=== PATIENT | male | born 1945 | race Caucasian/White ===

== ENCOUNTER → 2020-12-18 | Outpatient (CLI) | payer MEDICARE, OTHER ==
[~2020-12-18] MED LIST: AMLO5; AMLO5 PO; ASPI81CH; ASPI81EC PO; ATOR40TA PO; CARV25 PO; CHOL10002; CYCL10 PO; DICL75ER PO; ISOMON20; LISHYD1012; LISHYD2012 PO; MELA3 PO; METF500 PO; MOMENI; MULVITA PO; Multiple Vitam1 EAC1 PO; OMEGA 3; OMEP20ER; SIMV40 PO; TAMS.4ER; TRAM50 PO; Veetids 500500 MG PO
[2020-12-19 14:04] LABS: C DIFFICILE DNA NEGATIVE (Negative)
== END | disposition home or self-care (01) ==
LOC: LAB 09:45 → LAB SHORT 09:45
PROVIDERS: Internal Medicine
DX: R19.7 Diarrhea, unspecified (principal)
CPT/HCPCS: 87015; 87045; 87046; 87205; 87493; 87899

== ENCOUNTER → 2020-12-19 | Outpatient (CLI) | payer MEDICARE, OTHER | END | disposition home or self-care (01) | LOC: LAB SHORT 12-18 06:25 → LAB 06:25 → LAB SHORT 06:25 | DX: R19.7 Diarrhea, unspecified (principal) | CPT/HCPCS: 87177; 87209 ==

== ENCOUNTER → 2021-03-01 | Outpatient (CLI) | payer MEDICARE, OTHER ==
[2021-03-01 08:56] LABS: BASOPHILS ABSOLUTE AUTO 0.05 K/mm3 (0.00-0.23); BASOPHILS PERCENT AUTO 1 % (0-2); EOSINOPHILS ABSOLUTE AUTO 0.11 K/mm3 (0.00-0.68); EOSINOPHILS PERCENT AUTO 1 % (0-6); Hemoglobin 11.7 g/dL (13.5-17.5); IMMATURE GRAN ABSOLUTE AUTO 0.29 K/mm3 (0.00-0.10); IMMATURE GRAN PERCENT AUTO 3 % (0-1); LYMPHOCYTES ABSOLUTE AUTO 1.51 K/mm3 (0.84-5.20); LYMPHOCYTES PERCENT AUTO 17 % (21-46); MONOCYTES PERCENT AUTO 11 % (4-13); Mean Corpuscular HGB 29.8 pg (26.0-34.0); Mean Corpuscular HGB Conc 34.4 g/dL (31.5-36.5); Mean Corpuscular Volume 87 fL (80-100); Mean Platelet Volume 9.8 fL (9.1-12.4); NEUTROPHILS ABSOLUTE AUTO 5.87 K/mm3 (1.96-9.15); NEUTROPHILS PERCENT AUTO 67 % (41-73); Platelet Count 332 K/mm3 (150-400); RDW Coefficient Variation 14.7 % (11.7-14.2); RDW Standard Deviation 47.2 fL (35.1-46.3); Red Blood Cell Count 3.93 M/mm3 (4.30-5.90); White Blood Cell Count 8.83 K/mm3 (4.00-11.30)
[2021-03-01 09:43] LABS: Bun/Creatinine Ratio 28.6 (12.0-20.0); Calcium, Blood 8.4 mg/dL (8.5-10.1); Creatinine, Blood 1.26 mg/dL (0.60-1.20); Potassium, Blood 3.4 mmol/L (3.5-5.5)
== END | disposition home or self-care (01) ==
LOC: LAB SHORT 08:52 → LAB 08:52
PROVIDERS: Physician Assistant Surgical
DX: R11.2 Nausea with vomiting, unspecified (principal)
CPT/HCPCS: 80048; 85025

== ENCOUNTER → 2022-10-22 | Outpatient (CLI) | payer MEDICARE, OTHER ==
[2022-10-22 12:41] LABS: BASOPHILS ABSOLUTE AUTO 0.05 K/mm3 (0.00-0.23); BASOPHILS PERCENT AUTO 0 % (0-2); EOSINOPHILS ABSOLUTE AUTO 0.57 K/mm3 (0.00-0.68); EOSINOPHILS PERCENT AUTO 5 % (0-6); Hematocrit 32.8 % (37.0-53.0); Hemoglobin 11.2 g/dL (13.5-17.5); IMMATURE GRAN ABSOLUTE AUTO 0.04 K/mm3 (0.00-0.10); IMMATURE GRAN PERCENT AUTO 0 % (0-1); LYMPHOCYTES ABSOLUTE AUTO 1.87 K/mm3 (0.84-5.20); LYMPHOCYTES PERCENT AUTO 17 % (21-46); MONOCYTES PERCENT AUTO 11 % (4-13); Mean Corpuscular HGB 31.3 pg (26.0-34.0); Mean Corpuscular HGB Conc 34.1 g/dL (31.5-36.5); Mean Corpuscular Volume 92 fL (80-100); Mean Platelet Volume 9.3 fL (9.1-12.4); NEUTROPHILS ABSOLUTE AUTO 7.45 K/mm3 (1.96-9.15); NEUTROPHILS PERCENT AUTO 67 % (41-73); Platelet Count 322 K/mm3 (150-400); RDW Coefficient Variation 13.5 % (11.7-14.2); RDW Standard Deviation 45.7 fL (35.1-46.3); Red Blood Cell Count 3.58 M/mm3 (4.30-5.90); White Blood Cell Count 11.18 K/mm3 (4.00-11.30)
[2022-10-22 12:49] LABS: Albumin/Globulin Ratio 0.8 (0.8-1.8); Bilirubin, Total 0.3 mg/dL (0.1-1.0); Bun/Creatinine Ratio 26.4 (12.0-20.0); Calcium, Blood 8.9 mg/dL (8.5-10.1); Creatinine, Blood 1.29 mg/dL (0.60-1.20); Globulin, Blood 3.9 g/dL (2.2-4.0); Potassium, Blood 4.8 mmol/L (3.5-5.5); Total Protein, Blood 6.9 g/dL (6.4-8.2)
== END | disposition home or self-care (01) ==
LOC: LAB SHORT 12:33
PROVIDERS: Emergency Medicine
DX: R07.89 Other chest pain (principal)
CPT/HCPCS: 80053; 83880; 84484; 85025

== ENCOUNTER 2024-08-27 13:12 | Inpatient (IN) | payer OTHER ==
[~2024-08-27] VITALS: Ht 157.5 cm; Wt 69.7 kg
[~2024-08-27 13:12] MED LIST changes: +ACET500 PO; +ALBU90OI INH; +AMLO10 PO; -AMLO5; -ASPI81CH; +ASPI81CH PO; +CEFD300 PO; -CHOL10002; +CLOP75 PO; +GABA300 PO; +HYDCHL25 PO; -ISOMON20; +ISOMON20 PO; +LISI20 PO; -OMEP20ER; +OMEP20ER PO; +THERA-D2000 UNIT PO; +TRAM50; -TRAM50 PO
[2024-08-27 13:21] LABS: Calcium, Ionized (POC) 1.08 mmol/L (1.10-1.46); Chloride (POC) 102 mmol/L (98-108); Glucose (ISTAT POC) 203 mg/dL (70-99); Hemoglobin (POC) 10.5 g/dL (13.5-17.5); Potassium (POC) 5.3 mmol/L (3.5-5.5); Sodium (POC) 129 mmol/L (135-148); Total CO2 (POC) 16 mmol/L (21-32)
[2024-08-27] MEDS ORDERED: NS 1,000 ML IV SCH ×2 (13:25→16:05)
[2024-08-27 13:30] LABS: Hematocrit 32.1 % (37.0-53.0); Hemoglobin 10.9 g/dL (13.5-17.5); Mean Corpuscular HGB 32.5 pg (26.0-34.0); Mean Corpuscular Volume 96 fL (80-100); Mean Platelet Volume 10.9 fL (9.1-12.4); Platelet Count 140 K/mm3 (150-400); RDW Coefficient Variation 13.2 % (11.7-14.2); RDW Standard Deviation 46.5 fL (35.1-46.3); Red Blood Cell Count 3.35 M/mm3 (4.30-5.90); White Blood Cell Count 11.35 K/mm3 (4.00-11.30)
[2024-08-27 13:54] LABS: Albumin, Blood 2.2 g/dL (3.4-5.0); Albumin/Globulin Ratio 0.6 (0.8-1.8); Bilirubin, Direct 0.2 mg/dL (0.0-0.3); Bilirubin, Indirect 0.2 mg/dL (0.1-0.7); Bilirubin, Total 0.4 mg/dL (0.1-1.0); Bun/Creatinine Ratio 19.2 (12.0-20.0); Calcium, Blood 7.9 mg/dL (8.5-10.1); Creatinine, Blood 4.37 mg/dL (0.60-1.20); Globulin, Blood 3.6 g/dL (2.2-4.0); Magnesium, Blood 1.8 mg/dL (1.6-2.4); Phosphorus, Blood 4.6 mg/dL (2.5-4.9); Potassium, Blood 5.3 mmol/L (3.5-5.5); Total Protein, Blood 5.8 g/dL (6.4-8.2)
[2024-08-27 13:55] LABS: CORONAVIRUS COVID-19 AG Negative (NEGATIVE); INFLUENZA A AG Negative (NEGATIVE); INFLUENZA B AG Negative (NEGATIVE)
[2024-08-27 14:05] LABS: BAND PERCENT MAN 34 % (0-8); BASOPHILS ABSOLUTE MAN 0.11 K/mm3 (0.00-0.23); BASOPHILS PERCENT MAN 1 % (0-2); EOSINOPHILS ABSOLUTE MAN 0.11 K/mm3 (0.00-0.68); EOSINOPHILS PERCENT MAN 1 % (0-6); LYMPHOCYTES ABSOLUTE MAN 0.34 K/mm3 (0.84-5.20); LYMPHOCYTES PERCENT MAN 3 % (21-46); MONOCYTES ABSOLUTE MAN 0.45 K/mm3 (0.16-1.47); MONOCYTES PERCENT MAN 4 % (4-13); NEUTROPHILS ABSOLUTE MAN 10.32 K/mm3 (1.96-9.15); SEG NEUTROPHILS PERCENT MAN 57 % (41-73); TOTAL CELLS COUNTED 100
[2024-08-27 14:36] LABS: International Normalized Ratio 1.03
[2024-08-27] MEDS ORDERED: FLU VACC TS2024-25(6MOS UP)/PF 45 MCG/0.5 ML SYRINGE IM SCH (16:00)
[2024-08-27] MEDS ORDERED: Atropine Sulfate 0.4 MG/ML 20ML VIAL IV ONE (16:40)
[2024-08-27 16:59] LABS: Hematocrit 33.8 % (37.0-53.0); Hemoglobin 11.3 g/dL (13.5-17.5); Mean Corpuscular HGB 32.4 pg (26.0-34.0); Mean Corpuscular HGB Conc 33.4 g/dL (31.5-36.5); Mean Corpuscular Volume 97 fL (80-100); Mean Platelet Volume 10.7 fL (9.1-12.4); Platelet Count 144 K/mm3 (150-400); RDW Coefficient Variation 13.2 % (11.7-14.2); RDW Standard Deviation 47.4 fL (35.1-46.3); Red Blood Cell Count 3.49 M/mm3 (4.30-5.90); White Blood Cell Count 11.94 K/mm3 (4.00-11.30)
[2024-08-27 17:16] LABS: Albumin, Blood 2.2 g/dL (3.4-5.0); Albumin/Globulin Ratio 0.6 (0.8-1.8); Bilirubin, Total 0.5 mg/dL (0.1-1.0); Bun/Creatinine Ratio 20.5 (12.0-20.0); Calcium, Blood 7.4 mg/dL (8.5-10.1); Creatinine, Blood 4.14 mg/dL (0.60-1.20); Globulin, Blood 3.6 g/dL (2.2-4.0); Potassium, Blood 4.8 mmol/L (3.5-5.5); Total Protein, Blood 5.8 g/dL (6.4-8.2)
[2024-08-27 17:58] LABS: BAND PERCENT MAN 70 % (0-8); BASOPHILS PERCENT MAN 0 % (0-2); EOSINOPHILS ABSOLUTE MAN 0.11 K/mm3 (0.00-0.68); EOSINOPHILS PERCENT MAN 1 % (0-6); LYMPHOCYTES ABSOLUTE MAN 0.71 K/mm3 (0.84-5.20); LYMPHOCYTES PERCENT MAN 6 % (21-46); METAMYELOCYTE ABSOLUTE MAN 0.23 K/mm3 (0.00-0.00); METAMYELOCYTE PERCENT MAN 2 % (0-0); MONOCYTES ABSOLUTE MAN 0.47 K/mm3 (0.16-1.47); MONOCYTES PERCENT MAN 4 % (4-13); NEUTROPHILS ABSOLUTE MAN 10.38 K/mm3 (1.96-9.15); SEG NEUTROPHILS PERCENT MAN 17 % (41-73); TOTAL CELLS COUNTED 100
[2024-08-27 19:49] VITALS: BP 90/46
[2024-08-27] MEDS ORDERED: Acetaminophen 500 MG Tab PO PRN (20:10)
[2024-08-27] MEDS ORDERED: Loperamide HCl 2 MG Cap PO PRN (20:20)
[2024-08-27] MEDS ORDERED: Albuterol HFA200 ACT/6.7 GM INH INH PRN (20:25)
[2024-08-27 20:51] LABS: Hematocrit 34.3 % (37.0-53.0); Hemoglobin 11.3 g/dL (13.5-17.5); Mean Corpuscular HGB 31.8 pg (26.0-34.0); Mean Corpuscular HGB Conc 32.9 g/dL (31.5-36.5); Mean Corpuscular Volume 97 fL (80-100); Mean Platelet Volume 10.7 fL (9.1-12.4); Platelet Count 147 K/mm3 (150-400); RDW Coefficient Variation 13.2 % (11.7-14.2); RDW Standard Deviation 47.2 fL (35.1-46.3); Red Blood Cell Count 3.55 M/mm3 (4.30-5.90); White Blood Cell Count 11.57 K/mm3 (4.00-11.30)
[2024-08-27 21:09] LABS: Magnesium, Blood 1.7 mg/dL (1.6-2.4)
[2024-08-27 21:14] LABS: Alanine Aminotransfer (ALT/SGP 102 U/L (12-78); Albumin, Blood 2.3 g/dL (3.4-5.0); Albumin/Globulin Ratio 0.6 (0.8-1.8); Alk Phos 84 U/L (50-136); Anion Gap 16 mmol/L (3-11); Aspartate Aminotrans (AST/SGOT 43 U/L (12-37); Bilirubin, Total 0.5 mg/dL (0.1-1.0); Blood Urea Nitrogen 80 mg/dL (8-24); Bun/Creatinine Ratio 18.6 (12.0-20.0); CO2, Blood 15 mmol/L (21-32); Calcium, Blood 7.6 mg/dL (8.5-10.1); Chloride, Blood 109 mmol/L (98-108); Globulin, Blood 3.6 g/dL (2.2-4.0); Glomerular Filtration Rate 13 (60-); Glucose, Blood 185 mg/dL (70-99); Phosphorus, Blood 5.6 mg/dL (2.5-4.9); Sodium, Blood 135 mmol/L (136-145); Total Protein, Blood 5.9 g/dL (6.4-8.2)
[2024-08-27 21:15] LABS: BAND PERCENT MAN 31 % (0-8); BASOPHILS PERCENT MAN 0 % (0-2); C-REACTIVE PROTEIN, EXT RANGE >19.000 mg/dL (0.000-0.300); EOSINOPHILS ABSOLUTE MAN 0.11 K/mm3 (0.00-0.68); EOSINOPHILS PERCENT MAN 1 % (0-6); LYMPHOCYTES ABSOLUTE MAN 0.69 K/mm3 (0.84-5.20); LYMPHOCYTES PERCENT MAN 6 % (21-46); METAMYELOCYTE ABSOLUTE MAN 0.11 K/mm3 (0.00-0.00); METAMYELOCYTE PERCENT MAN 1 % (0-0); MONOCYTES PERCENT MAN 0 % (4-13); NEUTROPHILS ABSOLUTE MAN 10.64 K/mm3 (1.96-9.15); SEG NEUTROPHILS PERCENT MAN 61 % (41-73); TOTAL CELLS COUNTED 100
[2024-08-27 22:26] LABS: Adenovirus F 40/41 Not Detected (NOT DETECT); Astrovirus Not Detected (NOT DETECT); Campylobacter Sp Not Detected (NOT DETECT); Cryptosporidium Not Detected (NOT DETECT); Cyclospora Cayetanensis Not Detected (NOT DETECT); E. Coli O157 Not Detected (NOT DETECT); Entamoeba Histolytica Not Detected (NOT DETECT); Enteroaggregative E. coli-EAEC Not Detected (NOT DETECT); Enteropathogenic E. coli-EPEC Not Detected (NOT DETECT); Enterotoxigenic E. coli-ETEC Not Detected (NOT DETECT); Giardia Lamblia Not Detected (NOT DETECT); Norovirus GI/GII Not Detected (NOT DETECT); Plesiomonas Shigelloides Not Detected (NOT DETECT); Rotavirus A Not Detected (NOT DETECT); Salmonella Sp Not Detected (NOT DETECT); Sapovirus Not Detected (NOT DETECT); Shiga Toxin-prod E. coli-STEC Not Detected (NOT DETECT); Shigella/Enteroin E. coli-EIEC Not Detected (NOT DETECT); Vibrio Cholerae Not Detected (NOT DETECT); Vibrio Sp Not Detected (NOT DETECT); Yersinia Enterocolitica Not Detected (NOT DETECT)
[2024-08-27 23:35] VITALS: BP 119/64
[2024-08-27 23:37] VITALS: BP 79/54
[2024-08-27 23:39] VITALS: BP 119/64
[2024-08-27 23:54] VITALS: BP 65/55
[2024-08-28] VITALS (76 sets, daily range): BP systolic 79–148; BP diastolic 39–89
--- NOTE | 2024-08-28 00:04 | NUR ---
UPDATE: PT APPEARED TO HAVE A SINUS PAUSE ON TELE. CAREER DEVELOPMENT ENGINEER WAS AT BEDSIDE WHEN THIS HAPPEN, STATING THE PATIENT HAD BECOME UNRESPONSIVE BRIEFLY. THIS WAS IMMEDIATELY AFTER THE PATIENT AMBULATED FROM THE BEDSIDE COMMODE BACK TO BED. EKG WAS DONE, SHOWING JUNCTIONAL RHYTHM @ 49 BPM. THIS IS A NEW RHYTHM CHANGE FOR PATIENT. PT'S BP DROPPED FROM 119/64 TO 65/55. THIS RN PHONED DR. HUSAIN TO DISCUSS PT CONDITION CHANGE. 500 ML BOLUS NS ORDERED. MD ARRIVED AT BEDSIDE.
[2024-08-28] MEDS ORDERED: NS 500 ML IV ONE (00:05)
[2024-08-28] MEDS ORDERED: Sodium Bicarb 8.4% Inj 100 MEQ in Sodium Chloride 0.45% 1,000 ML IV SCH ×2 (00:25→14:30)
--- NOTE | 2024-08-28 00:30 | NUR ---
UPDATE: PT TRANSFERRING TO ICU. STAT LABS, BICARB DRIP ORDERED PER DR. HUSAIN.
[2024-08-28 00:48] LABS: Base Excess Venous -14.2 mmol/L; Bicarbonate Venous 14.1 mmol/L (24.0-30.0); PCO2 Venous 28.8 mmHg (38-42); pH Blood Venous 7.26 (7.34-7.37)
[2024-08-28 00:51] LABS: Hematocrit 33.9 % (37.0-53.0); Hemoglobin 11.3 g/dL (13.5-17.5); Mean Corpuscular HGB 31.9 pg (26.0-34.0); Mean Corpuscular HGB Conc 33.3 g/dL (31.5-36.5); Mean Corpuscular Volume 96 fL (80-100); Mean Platelet Volume 10.6 fL (9.1-12.4); Platelet Count 129 K/mm3 (150-400); RDW Coefficient Variation 13.3 % (11.7-14.2); RDW Standard Deviation 47.5 fL (35.1-46.3); Red Blood Cell Count 3.54 M/mm3 (4.30-5.90); White Blood Cell Count 9.77 K/mm3 (4.00-11.30)
[2024-08-28 00:58] LABS: Source, Urine Foley catheter
[2024-08-28 01:04] LABS: Blood, Urine Neg (Neg); Glucose Qualitative, Urine Neg (Neg); Ketones, Urine Neg (Neg); Leukocyte Esterase, Urine Neg (Neg); Nitrite, Urine Neg (Neg); Protein, Urine 2+ (Neg); Urobilinogen, Urine NORM (Normal)
[2024-08-28 01:12] LABS: Albumin, Blood 2.2 g/dL (3.4-5.0); Albumin/Globulin Ratio 0.6 (0.8-1.8); BAND PERCENT MAN 31 % (0-8); BASOPHILS PERCENT MAN 0 % (0-2); Bilirubin, Total 0.5 mg/dL (0.1-1.0); Bun/Creatinine Ratio 18.1 (12.0-20.0); Calcium, Blood 7.7 mg/dL (8.5-10.1); Creatinine, Blood 4.64 mg/dL (0.60-1.20); EOSINOPHILS ABSOLUTE MAN 0.39 K/mm3 (0.00-0.68); EOSINOPHILS PERCENT MAN 4 % (0-6); Globulin, Blood 3.6 g/dL (2.2-4.0); LYMPHOCYTES ABSOLUTE MAN 0.19 K/mm3 (0.84-5.20); LYMPHOCYTES PERCENT MAN 2 % (21-46); METAMYELOCYTE ABSOLUTE MAN 0.09 K/mm3 (0.00-0.00); METAMYELOCYTE PERCENT MAN 1 % (0-0); MONOCYTES ABSOLUTE MAN 0.48 K/mm3 (0.16-1.47); MONOCYTES PERCENT MAN 5 % (4-13); MYELOCYTE ABSOLUTE MAN 0.09 K/mm3 (0.00-0.00); MYELOCYTE PERCENT MAN 1 % (0-0); Magnesium, Blood 1.6 mg/dL (1.6-2.4); NEUTROPHILS ABSOLUTE MAN 8.49 K/mm3 (1.96-9.15); Potassium, Blood 5.5 mmol/L (3.5-5.5); SEG NEUTROPHILS PERCENT MAN 56 % (41-73); TOTAL CELLS COUNTED 100; Total Protein, Blood 5.8 g/dL (6.4-8.2)
[2024-08-28 01:28] LABS: Appearance, Urine Hazy (Clear); Bilirubin, Urine 1+ (Neg); Color, Urine Yellow (P-Yellow)
[2024-08-28 01:29] LABS: Bacteria Few /hpf; Red Blood Cells, Urine 0-2 /hpf (0-2); Squamous Epithelial Cells Mod /hpf (Few); White Blood Cells, Urine 0-2 /hpf (0-5)
[2024-08-28 01:30] LABS: Amorphous Mod (0-Heavy); Granular Casts 0-2 /lpf (0); Mucus Light (0-Heavy)
[2024-08-28 05:23] LABS: Eosinophils-Raw #,Urine 0; White Blood Cells Urine 0-2 /hpf (0-5)
--- NOTE | 2024-08-28 05:23 | NUR ---
SHIFT SUMMARY: PT ARRIVED FROM PCU APPROXIMATELY 0130. HE IS ALERT AND COOPERATIVE WITH CARE BUT CONFUSED ABOUT LOCATION AND SITUATION. HE PRESENTED WITH HYPOTENSION NOT RESPONDING TO FLUID RESUCITATION AND A CHANGE TO A JUNCTIONAL RHYTHM FROM SINUS RHYTHM. PATIENT HAS REMAINED IN JUNCTIONAL RHYTHM WITH A RATE IN 40S-50S. PT IS ON A LEVOPHED GTT, MAP HAS NOT YET REACHED GOAL OF 65. PT CONTINUES TO HAVE DIARRHEA. HE HAS A MENENDEZ CATHETER IN PLACE. URINE OUTPUT IS LESS THAN ADEQUATE. PATIENT IS ON 5LPM OXYGEN VIA NC, HE EXHIBITS SOB WITH EXERTION. HE HAS A WOUND ON HIS ABDOMEN AND ONE ON HIS LEFT LEG THAT LOOK LIKE SKIN REACTIONS TO AN ELECTRODE AND A STAT LOCK RESPECTIVELY.
[2024-08-28 05:35] LABS: Hematocrit 31.8 % (37.0-53.0); Hemoglobin 10.8 g/dL (13.5-17.5)
[2024-08-28] MEDS ORDERED: Sodium Bicarb 8.4% 1 MEQ/ML 50 ML Vial IV ONE (05:45)
[2024-08-28] MEDS ORDERED: Bumetanide 0.25 MG/ML 10ML Vial IV ONE ×2 (05:45→08:30)
[2024-08-28] MEDS ORDERED: Albumin (Human) 12.5gm/250ml 250 ML IV ONE (05:45)
[2024-08-28 06:00] LABS: Albumin, Blood 2.2 g/dL (3.4-5.0); Anion Gap 17 mmol/L (3-11); Blood Urea Nitrogen 90 mg/dL (8-24); Bun/Creatinine Ratio 18.5 (12.0-20.0); CO2, Blood 14 mmol/L (21-32); Calcium, Blood 7.9 mg/dL (8.5-10.1); Chloride, Blood 110 mmol/L (98-108); Creatinine, Blood 4.86 mg/dL (0.60-1.20); Glomerular Filtration Rate 11 (60-); Glucose, Blood 150 mg/dL (70-99); Magnesium, Blood 1.8 mg/dL (1.6-2.4); Phosphorus, Blood 5.6 mg/dL (2.5-4.9); Potassium, Blood 5.5 mmol/L (3.5-5.5); Sodium, Blood 135 mmol/L (136-145)
[2024-08-28] MEDS ORDERED: CefTRIAXone Sodium 2,000 MG in NS 100 ML IV SCH (07:30)
[2024-08-28] MEDS ORDERED: Vancomycin HCL 1,750 MG in NS 500 ML IV SCH (08:30)
[2024-08-28] MEDS ORDERED: Enoxaparin 30 MG/0.3 ML SYR SC SCH (09:00)
[2024-08-28] MEDS ORDERED: Aspirin 81 MG Chew PO SCH (09:00)
[2024-08-28] MEDS ORDERED: Atorvastatin 40 MG Tab PO SCH (09:00)
[2024-08-28] MEDS ORDERED: NS 250 ML IV PRN (09:05)
--- NOTE | 2024-08-28 11:11 | NUR ---
AM NOTE.... ASSUMED CARE OF PT AT 0700, PT IS A&Ox4 AT THE TIME OF THIS ASSESSMENT. HE IS IN SR/SA IN THE 80'S LEVOPHED IS RUNNING AT 10MCG/HR TO KEEP MAPS>65. PT HAS 1+ EDEMA TO HIS BLE. PT IS ON 4L NC WITH O2 SATS>90% L/S CLEAR AND DIM IN THE BASES UPPER AIRWAY WHEEZING/STRIDOR NOTED. PT BECOMES VERY DYSPNEIC WITH ACTIVITY. BT PRESENT AND HYPERACTIVE, PT IS HAVING FREQUENT LOOSE STOOLS. MENENDEZ IS PATENT AND DRAINING TO GRAVITY. A PICC LINE WAS PLACED PER ORDERS THIS AM.
[2024-08-28 13:09] LABS: Albumin, Blood 2.3 g/dL (3.4-5.0); Anion Gap 16 mmol/L (3-11); Blood Urea Nitrogen 82 mg/dL (8-24); Bun/Creatinine Ratio 19.7 (12.0-20.0); CO2, Blood 17 mmol/L (21-32); Calcium, Blood 7.6 mg/dL (8.5-10.1); Chloride, Blood 107 mmol/L (98-108); Creatinine, Blood 4.16 mg/dL (0.60-1.20); Glomerular Filtration Rate 14 (60-); Glucose, Blood 136 mg/dL (70-99); Phosphorus, Blood 4.5 mg/dL (2.5-4.9); Sodium, Blood 136 mmol/L (136-145)
--- NOTE | 2024-08-28 13:14 | NUR ---
"Spiritual care | spousal support. Pt. was being attended to to by the nursing staff when I greeted Pts. spouse outside of the room. Facilitated a life review and considered matters of gabriela and belief. Spouse is pleasant and invited this long distance billing operator to return at another time later today."
--- NOTE | 2024-08-28 14:00 | NUR ---
Pt. is resting but responds when I enter the room. Pt. is pleasant. A life review and a measure of rapport is quickly established. Considered matters of his life and recent second marriage. Listen with interest and a calming presence. Pt. showed this dental laboratory manager photos of his restored 55 [address]. Prayed for the Pt. Pt. verbalized gratitude fo te spiritual care visit.
[2024-08-28] MEDS ORDERED: Acetaminophen 500 MG Tab PO PRN (15:05)
[2024-08-28] MEDS ORDERED: Acetaminophen 500 MG Tab PO ONE (16:00)
--- NOTE | 2024-08-28 18:31 | NUR ---
SHIFT SUMMARY.... PT HAS BEEN A&Ox4 T/O THIS SHIFT UNTIL APROX 1500 WHEN HE STARTED TO BECOME CONFUSED, HE WAS MUMBLING UNABLE TO FIND HIS WORDS ALMOST LIKE "WORD SALAD." THE PT'S TEMP WAS INCREASING T/O THIS SHIFT WITH A TMAX OF 103. PT WAS GIVEN TYLENOL AND ICE PACKS WITH FANS. THE PT WAS IN SR UNTIL AROUND THIS TIME WELL, HE HAD AN EPISODE OF ACCL JUNCTIONAL, SOME 2 SECOND PAUSES AND THEN CONVERTED TO AFIB W/RVR IN THE 130'S EKG WAS OBTAINED. PT'S WORK OF BREATHING INREASED AND O2 SATS DROPPED DOWN TO THE LOW 80'S, HIS O2 WAS TITRATED UP FROM 4L NC TO 11L NC HI FLOW. HOSPITALIST WAS NOTIFIED AND AN ORDER FOR NUTRITIONAL ASSISTANT CONSULT WAS PLACED AND DR. JONES WAS CALLED. A RECTAL TUBE WAS PLACED D/T THE PT HAVING INCREASED LOOSE STOOLS. PT'S MENENDEZ IS PATENT AND DRAINING TO GRAVITY. THE PT'S TEMP IMPROVED AT 1800 TO 99.6, AFTER THIS THE PT'S MENTAL STATUS IMPROVED, HIS WORK OF BREATHING IMPROVED AND HIS O2 WAS TITRATED DOWN TO 7L NC. WILL REPORT TO ONCOMING RN.
[2024-08-28 19:04] LABS: Hematocrit 32.1 % (37.0-53.0); Mean Corpuscular HGB Conc 34.3 g/dL (31.5-36.5); Mean Corpuscular Volume 93 fL (80-100); Platelet Count 138 K/mm3 (150-400); RDW Coefficient Variation 13.2 % (11.7-14.2); RDW Standard Deviation 45.1 fL (35.1-46.3); Red Blood Cell Count 3.44 M/mm3 (4.30-5.90); White Blood Cell Count 9.58 K/mm3 (4.00-11.30)
[2024-08-28 19:33] LABS: BAND PERCENT MAN 35 % (0-8); BASOPHILS PERCENT MAN 0 % (0-2); EOSINOPHILS PERCENT MAN 0 % (0-6); LYMPHOCYTES ABSOLUTE MAN 0.76 K/mm3 (0.84-5.20); LYMPHOCYTES PERCENT MAN 8 % (21-46); METAMYELOCYTE ABSOLUTE MAN 0.19 K/mm3 (0.00-0.00); METAMYELOCYTE PERCENT MAN 2 % (0-0); MONOCYTES ABSOLUTE MAN 0.38 K/mm3 (0.16-1.47); MONOCYTES PERCENT MAN 4 % (4-13); NEUTROPHILS ABSOLUTE MAN 8.23 K/mm3 (1.96-9.15); SEG NEUTROPHILS PERCENT MAN 51 % (41-73); TOTAL CELLS COUNTED 100
[2024-08-28 19:39] LABS: Bun/Creatinine Ratio 23.1 (12.0-20.0); Calcium, Blood 7.7 mg/dL (8.5-10.1); Creatinine, Blood 3.72 mg/dL (0.60-1.20); Magnesium, Blood 1.4 mg/dL (1.6-2.4); Phosphorus, Blood 4.3 mg/dL (2.5-4.9); Potassium, Blood 3.7 mmol/L (3.5-5.5)
--- NOTE | 2024-08-28 20:31 | NUR ---
I INITIALLY CALLED AND SPOKE TO TERRA MELGAR WITH [employer]. HE REQUESTED I CALL AND NOTIFY ROBERT SINCE ROBERT ORDERED THE TROPONIN. ECG PERFORMED AT [address] SEGMENT CHANGES. ROBERT ADVISED TO DO PRN ECGS AND TO NOTIFY HIM IF THE PATIENT HAS ANY CHANGES IN PRESENTATION OR CONDITION.
[2024-08-28] MEDS ORDERED: Magnesium Sulf 2 GM/Water 50ML 50 ML IV ONE (21:50)
[2024-08-28] MEDS ORDERED: Calcium Chloride 10% 2,000 MG in NS 100 ML IV ONE (21:50)
[2024-08-29] VITALS (43 sets, daily range): BP systolic 110–168; BP diastolic 53–94
[2024-08-29 01:22] LABS: Bun/Creatinine Ratio 23.4 (12.0-20.0); Calcium, Blood 9.6 mg/dL (8.5-10.1); Creatinine, Blood 3.51 mg/dL (0.60-1.20); Magnesium, Blood 2.6 mg/dL (1.6-2.4); Potassium, Blood 3.5 mmol/L (3.5-5.5)
[2024-08-29] MEDS ORDERED: Potassium Chl 10MEQ/Water100ML 100 ML IV ONE (02:30)
--- NOTE | 2024-08-29 02:50 | NUR ---
SPOKE WITH RODRIGUE APPROXIMATELY 0000 ABOUT PATIENT'S INCREASING FREQUENCY AND DURATION OF PAUSES. PT REMAINS ASYMPTOMATIC DURING. RODRIGUE ORDERED LABS, ECHO AND CONSULT AND WILL REVIEW LABS.
[2024-08-29] MEDS ORDERED: Sodium Bicarb 8.4% Inj 100 MEQ in Sodium Chloride 0.45% 1,000 ML IV SCH (04:25)
[2024-08-29 04:28] LABS: Vancomycin, Random 18.5 ug/mL
--- NOTE | 2024-08-29 05:40 | NUR ---
SHIFT SUMMARY: PT HAS REMAINED A&OX4 THROUGHOUT SHIFT. HE IS ON 7LPM O2 NC, SOB HAS IMPROVED. LUNGS ARE CLEAR. PT WAS IN AFIB W/ RVR WITH PAUSES AND PVCS. HE REMAINED ASYMPTOMATIC DURING THESE TIMES. PT HAS MAINTAINED A MAP >65. HE IS STILL ON SODIUM BICARB GTT NOW AT 50ML/HR. LEVOPHED IS STILL OFF. MENENDEZ CATHETER AND RECTAL TUBE IN PLACE AND PATENT. PT STILL EXPERIENCING LIQUID BMS.
[2024-08-29] MEDS ORDERED: Bumetanide 0.25 MG/ML 10ML Vial IV ONE (07:00)
--- NOTE | 2024-08-29 08:25 | NUR ---
AM NOTE... ASSUMED CARE OF PT AT 0700, PT IS A&Ox4. HE IS IN AFIB IN THE 100'S TO 130'S BP IS STABLE WITH MAPS>65. PT HAS 1+ EDEMA TO HIS BLE. HE WAS ON 7L NC WITH O2 SATS>90% L/S WHEEZES HEARD ON THE RIGHT SIDE, CLEAR IN THE UPPER LEFT LOBE DIM IN THE LOWER LOBES. BT PRESENT AND HYPERACTIVE ABD HAS MODERATE DISTENTION AND IS SLIGHTLY FIRM TO PALPATION. RECTAL TUBE IS PATIENT AND DRAINING LIQUID BROWN STOOLS TO GRAVITY. MENENDEZ IS PATENT AND DRAINING TO GRAVITY. PT'S TEMP THIS AM WAS 100.6.
[2024-08-29] MEDS ORDERED: Vancomycin HCL 1,000 MG in NS 250 ML IV SCH (09:00)
[2024-08-29] MEDS ORDERED: Carvedilol 25 MG Tab PO SCH (11:00)
--- NOTE | 2024-08-29 12:00 | NUR ---
PT CONVERSION.... PT CONVERTED FROM AFIB TO SR AFTER A 2.5 SECOND PAUSE. AT 1045 THE FURNACE TENDER ASSESSED THE PT. OTHER VS STABLE.
[2024-08-29] MEDS ORDERED: Atropine Sulfate 0.1 MG/ML 10ML SYR IV PRN (15:40)
[2024-08-29 16:27] LABS: Free Thyroxine 1.14 ng/dL (0.70-1.60)
[2024-08-29 16:28] LABS: Thyroid Stimulating Hormone 0.307 uIU/mL (0.360-4.800)
[2024-08-29 16:31] LABS: C-Reactive Protein, High Sens. >190.000 mg/dL (0.000-3.000)
--- NOTE | 2024-08-29 17:57 | NUR ---
SHIFT SUMMARY... NO ACUTE NEGATIVE CHANGES NOTED THIS SHIFT. PT'S O2 HAS DECREASED FROM 7L NC TO 3L NC WITH O2 SATS>92%. PT HAD A BED BATH AND LINEN CHANGE, THE PT'S RECTAL TUBE IS DRAINING WELL TO GRAVITY. PT'S MENENDEZ IS PATENT AND DRAINING TO GRAVITY, PT'S TMAX WAS 100.6. PT HAS BEEN IN SR SINCE 944, NO PAUSES NOTED SINCE HE CONVERTED THIS AM. ZOLL AT THE BEDSIDE. CALL LIGHT IN REACH, WILL REPORT TO ONCOMING RN.
--- NOTE | 2024-08-29 20:17 | NUR ---
ASSUMPTION OF CARE/ASSESSMENT: ASSUMED CARE OF PT AT 1900; REPORT RECIEVED FROM LEIDY WITT. PT REMAINS IN BED, A&O X 4, PLEASANT AND COOPERATIVE WITH CARE. PT CONTINUES ON NC @ 3LPM, REPORTS MILD SOB, WHEEZES NOTED IN DIPTI, CLEAR THROUGHOUT OTHER LOBES, AND SPO2 92<; RT BY TO ADMINISTER PRN ALBUTEROL WITH GOOD EFFECT. PT CONTINUES WITH SR ON MONITOR WITH OCCASIONAL PVC'S, HR 90'S AND SBP 120'S. PT DENIES CHEST PAIN OR PRESSURE AT THIS TIME. ABD OBSES, ROUND AND FIRM; PAIN UPON PALPATION ON LEFT SIDE; PT STATES THAT HE HAD A HERNIA REPAIR IN THE PAST AND EVEN SINCE THEN AREA HAS BEEN TENDER. WILL CONTINUE TO MONITRO ABD PAIN THROUGHOUT THE SHIFT. PT DOLAN, ASSISTS WITH TURNS AND ABLE TO COMMUNICATE NEEDS. MENENDEZ PATENT AND DRAINING TO GRAVITY; RECTAL TUBE PATENT AND DRAINING TO GRAVITY. PIV TO RFA PULLED AT START OF SHIFT. PICC TO HERMINIO REMAINS PATENT AND SALINE LOCKED AT THIS TIME. BED LOWERED, CALL LIGHT IN REACH.
[2024-08-30] VITALS (14 sets, daily range): BP systolic 123–169; BP diastolic 57–95
[2024-08-30 04:51] LABS: BASOPHILS ABSOLUTE AUTO 0.04 K/mm3 (0.00-0.23); BASOPHILS PERCENT AUTO 1 % (0-2); EOSINOPHILS ABSOLUTE AUTO 0.11 K/mm3 (0.00-0.68); EOSINOPHILS PERCENT AUTO 1 % (0-6); Hematocrit 33.4 % (37.0-53.0); Hemoglobin 11.7 g/dL (13.5-17.5); IMMATURE GRAN ABSOLUTE AUTO 0.17 K/mm3 (0.00-0.10); IMMATURE GRAN PERCENT AUTO 2 % (0-1); LYMPHOCYTES ABSOLUTE AUTO 0.84 K/mm3 (0.84-5.20); LYMPHOCYTES PERCENT AUTO 11 % (21-46); MONOCYTES ABSOLUTE AUTO 0.83 K/mm3 (0.16-1.47); MONOCYTES PERCENT AUTO 10 % (4-13); Mean Corpuscular HGB 31.9 pg (26.0-34.0); Mean Corpuscular Volume 91 fL (80-100); Mean Platelet Volume 10.9 fL (9.1-12.4); NEUTROPHILS ABSOLUTE AUTO 6.02 K/mm3 (1.96-9.15); NEUTROPHILS PERCENT AUTO 75 % (41-73); Platelet Count 130 K/mm3 (150-400); RDW Standard Deviation 44.1 fL (35.1-46.3); Red Blood Cell Count 3.67 M/mm3 (4.30-5.90); White Blood Cell Count 8.01 K/mm3 (4.00-11.30)
[2024-08-30 05:08] LABS: Anion Gap 12 mmol/L (3-11); Blood Urea Nitrogen 63 mg/dL (8-24); CO2, Blood 25 mmol/L (21-32); Calcium, Blood 8.6 mg/dL (8.5-10.1); Chloride, Blood 103 mmol/L (98-108); Creatinine, Blood 2.17 mg/dL (0.60-1.20); Glomerular Filtration Rate 30 (60-); Glucose, Blood 156 mg/dL (70-99); Magnesium, Blood 1.8 mg/dL (1.6-2.4); Phosphorus, Blood 3.4 mg/dL (2.5-4.9); Potassium, Blood 2.7 mmol/L (3.5-5.5); Sodium, Blood 137 mmol/L (136-145); Vancomycin, Random 17.2 ug/mL
[2024-08-30] MEDS ORDERED: Potassium Chloride 20 MEQ TabCR PO ONE (05:35)
[2024-08-30] MEDS ORDERED: Potassium Chl 20MEQ/Water100ML 100 ML IV ONE (05:35)
--- NOTE | 2024-08-30 05:35 | NUR ---
SHIFT SUMMARY: NO ACUTE CHANGES OVERNIGHT, VSS THROUGHOUT THE SHIFT. PT REMAINS OFF LEVO THROUGHOUT THE NIGHT. PT ABLE TO SLEEP FOR MAJORITY OF THE NIGHT. RECTAL TUBE BAD REPLACED; 300 ML OUTPUT. GOOD URINE OUTPUT; 1300 MLS OUTPUT. POTASSIUM AT 2.7 THIS MORNING; UPDATED AND NEW ORDERS RECIEVED. BED LOWERED, CALL LIGHT IN REACH.
--- NOTE | 2024-08-30 07:53 | NUR ---
AM NOTE... ASSUMED CARE OF PT AT 0700, PT IS A&Ox4. PT WAS ON 3L NC WHICH WAS STOPPED DURING THIS ASSESSMENT, PT'S O2 SATS STAYED >90%. L/S CLEAR T/O DIM IN THE BASES. PT DENIES CHEST PAIN. BT PRESENT AND HYPERACTIVE, ABD HAS MODERATE DISTENTION AND IS TENDER TO PALPATION. RECTAL TUBE IS PATENT AND DRAINING TO GRAVITY. MENENDEZ IS PATENT AND DRAINING TO GRAVITY. PLANS TO GET UP TO THE RECLINER CHAIR TODAY.
[2024-08-30] MEDS ORDERED: Vancomycin HCL 1,000 MG in NS 250 ML IV SCH (09:00)
[2024-08-30] MEDS ORDERED: MethylPREDNISolone Sod Succ 40 MG VIAL IV ONE (11:00)
[2024-08-30] MEDS ORDERED: Potassium Chloride 10 Meq Tablet SA PO ONE (13:55)
[2024-08-30] MEDS ORDERED: Insulin Human Lispro 100 Units/ML 3ML Syringe SC SCH (17:00)
--- NOTE | 2024-08-30 17:40 | NUR ---
SHIFT SUMMARY.... NO ACUTE NEGATIVE CHANGES NOTED THIS SHIFT. PT'S VS HAVE BEEN STABLE. PT HAS BEEN ON RA T/O THIS SHIFT UNLESS HE IS SLEEPING THEN HE NEEDS 2-3L TO KEEP O2 SATS>90%. PT WAS UP IN THE RECLINER CHAIR FOR SEVERAL HOURS THIS SHIFT WITH 1P ASSIST. RECTAL TUBE AND MENENDEZ ARE PATENT AND DRAINING TO GRAVITY. PT WAS CHANGED TO PCU STATUS THIS AFTERNOON. CALL LIGHT IN REACH.
[2024-08-31] VITALS (23 sets, daily range): BP systolic 127–186; BP diastolic 62–95
[2024-08-31 05:05] LABS: Hematocrit 34.2 % (37.0-53.0)
[2024-08-31 05:25] LABS: Anion Gap 11 mmol/L (3-11); Blood Urea Nitrogen 51 mg/dL (8-24); Bun/Creatinine Ratio 33.1 (12.0-20.0); CO2, Blood 27 mmol/L (21-32); Calcium, Blood 8.4 mg/dL (8.5-10.1); Chloride, Blood 108 mmol/L (98-108); Creatinine, Blood 1.54 mg/dL (0.60-1.20); Glomerular Filtration Rate 45 (60-); Glucose, Blood 178 mg/dL (70-99); Magnesium, Blood 1.9 mg/dL (1.6-2.4); Phosphorus, Blood 2.9 mg/dL (2.5-4.9); Potassium, Blood 3.6 mmol/L (3.5-5.5); Sodium, Blood 142 mmol/L (136-145)
--- NOTE | 2024-08-31 06:49 | NUR ---
END OF SHIFT SUMMARY NO ACUTE EVENTS OVER NIGHT. HE WAS ABLE TO SLEEP FOR ONLY A FEW HOURS. HE IS A/O X4 AND ABLE TO MAKE HIS NEEDS KNOWN. SPO2 >92% ON RA WHILE AWAKE AND ON 2L NC WHILE SLEEPING. AFEBRILE. NSR NOTED WITH RATE 70-90'S. SBP 140-160'S. RECTAL TUBE IN PLACE WITH SMALL AMOUNT OF LIQUID BROWN OUTPUT. MENENDEZ IN PLACE AND DRAINING TO GRAVITY; TOLERATED FLUID RESTRICTION. REDNESS TO COCCYX NOTED AND IMPROVING T/O SHIFT; BARRIER CREAM APPLIED. PICC TO RUE PATENT WITH DRESSING C/D/I; SALINE LOCKED. WILL REPORT TO AM RN WHEN AVAILABLE.
[2024-08-31] MEDS ORDERED: Vancomycin HCL 1,000 MG in NS 250 ML IV SCH (08:00)
[2024-08-31] MEDS ORDERED: MethylPREDNISolone Sod Succ 40 MG VIAL IV SCH (09:00)
[2024-08-31] MEDS ORDERED: Lisinopril 20 MG Tab PO SCH ×2 (09:00→21:00)
[2024-08-31] MEDS ORDERED: Enoxaparin 40 MG/0.4 ML SYR SC SCH (09:00)
--- NOTE | 2024-08-31 10:22 | NUR ---
THIS RN ASSUMED CARE OF PT AT 0700, PT IS ALERT AND ORIENTED X4, VERY PLEASANT PT, CLINICALLY AND VITALS ALL LOOK GREAT THIS AM. WAS BEDSIDE THIS AM AND NOTED PT WAS LOOKING A LOT BETTER. SAID TO GO AHEAD AND PULL MENENDEZ, RECTAL TUBE WILL WAIT DUE TO PT STILL HAVEING COLLITIS IN STOOL, PT ON A FLUID RESTRICTION, AWARE AND WOULD LOOK INTO IT TO SEE IF WE CAN INCREASE FLUIDS OR GET RID OF IT ALL TOGETHER. PT BLOOD PRESSURE ELEVATED THIS AM 180 SBPs, ORDERED PT LISINOPRIL 20MG DAILY. PT HAS A PICC LINE THAT IS CLEAN/DRY AND INTACT, SLIGHT BRUSIING, PT DENIES ANY PAIN. NO NEW INTERVENTIONS AT THIS TIME. PLAN OF CARE CONTINUED.
[2024-08-31] MEDS ORDERED: HydrALAZINE HCl 20 MG / ML 1ML Vial IV PRN (11:30)
--- NOTE | 2024-08-31 17:34 | NUR ---
PT SUMMARY PT IS ALERT AND ORIENTED X4, PT HAS BEEN VISITING WITH FAMILY MOST OF THE DAY. AT AROUND 1300 MENENDEZ CATHETER WAS REMOVED AND RECTAL TUBE WAS REMOVED. PT WAS ABLE TO VOID AND URINATE IN THE BATHROOM. PT WAS ABLE TO GET UP AND SIT IN CHAIR X1 ASSIST. PT IS PRETTY WEAK BUT MOVES APPROPRIATLEY WITH ASSISTANCE. PT BLOOD PRESSURE HAS BEEN ON HIGHER END TODAY. PRN HYDRALAZINE FOR SBP >160 AND RESTARTED HOME LISINOPRIL PER DR. WATERS. NO OTHER INTERVENTIONS OR ACUTE EVENTS HAPPENED ON 08/31/24. PLAN OF CARE CONTINUED.
--- NOTE | 2024-08-31 22:42 | NUR ---
TRANSFERED CARE @9571 TRANSFERED PATIENT TO ROOM 312 TO SHERIE WITT, PATIENT BELONGINGS WITH HIM.
--- NOTE | 2024-09-01 04:22 | NUR ---
SHIFT SUMMARY: Pt is admitted for JOSE and is a full code. Is alert and able to make needs known. ADLs have been SBA. denies pain or discomfort when asked. Telly reports sinus in the 90s. PICC to right upper arm is patent with dressing that is CDI.
[2024-09-01 05:01] LABS: Hematocrit 34.5 % (37.0-53.0); Hemoglobin 11.9 g/dL (13.5-17.5)
[2024-09-01 05:13] LABS: Albumin, Blood 2.2 g/dL (3.4-5.0); Anion Gap 9 mmol/L (3-11); Blood Urea Nitrogen 42 mg/dL (8-24); Bun/Creatinine Ratio 34.4 (12.0-20.0); CO2, Blood 28 mmol/L (21-32); Calcium, Blood 8.4 mg/dL (8.5-10.1); Chloride, Blood 109 mmol/L (98-108); Creatinine, Blood 1.22 mg/dL (0.60-1.20); Glomerular Filtration Rate 60 (60-); Glucose, Blood 174 mg/dL (70-99); Magnesium, Blood 1.8 mg/dL (1.6-2.4); Phosphorus, Blood 1.8 mg/dL (2.5-4.9); Potassium, Blood 3.7 mmol/L (3.5-5.5); Sodium, Blood 142 mmol/L (136-145)
[2024-09-01] MEDS ORDERED: Sodium Phosphate 20 MM in Dextrose 5% 500 ML IV STA (07:20)
[2024-09-01 07:36] VITALS: BP 168/74
[2024-09-01] MEDS ORDERED: Potassium Chloride 10 Meq Tablet SA PO SCH (09:00)
[2024-09-01] MEDS ORDERED: Furosemide 20 MG Tab PO SCH (09:00)
[2024-09-01] MEDS ORDERED: CARV3.125 PO (12:35)
[2024-09-01] MEDS ORDERED: FLOMAX0.4 MG PO (12:38)
[2024-09-01] MEDS ORDERED: BACTRIM DS TAB1 EAC6 PO (12:39)
[2024-09-01] MEDS ORDERED: FURO20 PO (12:39)
[2024-09-01] MEDS ORDERED: Prednisone10 MG PO (12:43)
[2024-09-01] MEDS ORDERED: POTA10T PO (12:43)
--- NOTE | 2024-09-01 15:00 | NUR ---
PT DISCHARGE REVIEWED WITH PT AND SPOUSE, THEY VERBALIZED UNDERSTANDING MEDS AND INST. PICC PULLED BY CEMENTER MACHINE APPLICATOR ALISHA, TELE REMOVED. PT WHEELED TO DOOR BY AIDE AT 1450
== END 2024-09-01 15:01 | disposition home health service (06) | DRG 871 ==
LOC: ER 13:12 → PCU 13:13 → ERHOLD 13:13 → ICUE 13:13 → PCU 17:49 → ICUE 18:23 → MEDS 08-31 22:10
PROVIDERS: Emergency Medicine; Internal Medicine; Internal Medicine Critical Care Medicine; Internal Medicine Endocrinology, Diabetes & Metabolism; Internal Medicine Nephrology; Specialist; Student in an Organized Health Care Education/Training Program; ADMIT Hospitalist
PROC: 3E03329 Introduction of Other Anti-infective into Peripheral Vein, Percutaneous Approach (ICD-10-PCS; principal; 2024-08-27)
PROC: 02HV33Z Insertion of Infusion Device into Superior Vena Cava, Percutaneous Approach (ICD-10-PCS; 2024-08-27)
DX: A41.9 Sepsis, unspecified organism (principal); I50.33 Acute on chronic diastolic (congestive) heart failure; N17.0 Acute kidney failure with tubular necrosis; J18.9 Pneumonia, unspecified organism; J96.01 Acute respiratory failure with hypoxia; I13.0 Hypertensive heart and chronic kidney disease with heart failure and stage 1 through stage 4 chronic kidney disease, or unspecified chronic kidney disease; E87.1 Hypo-osmolality and hyponatremia; E87.20 Acidosis, unspecified; I25.10 Atherosclerotic heart disease of native coronary artery without angina pectoris; K52.9 Noninfective gastroenteritis and colitis, unspecified; E11.22 Type 2 diabetes mellitus with diabetic chronic kidney disease; N18.30 Chronic kidney disease, stage 3 unspecified; E11.51 Type 2 diabetes mellitus with diabetic peripheral angiopathy without gangrene; Z96.653 Presence of artificial knee joint, bilateral; M54.12 Radiculopathy, cervical region; I49.5 Sick sinus syndrome; G25.81 Restless legs syndrome; F32.9 Major depressive disorder, single episode, unspecified; N52.9 Male erectile dysfunction, unspecified; K21.9 Gastro-esophageal reflux disease without esophagitis; I48.0 Paroxysmal atrial fibrillation; I35.0 Nonrheumatic aortic (valve) stenosis; E78.5 Hyperlipidemia, unspecified; E87.5 Hyperkalemia; Z88.8 Allergy status to other drugs, medicaments and biological substances; E83.39 Other disorders of phosphorus metabolism; Z95.1 Presence of aortocoronary bypass graft; Z98.890 Other specified postprocedural states; Z79.82 Long term (current) use of aspirin; Z79.899 Other long term (current) drug therapy; Z91.048 Other nonmedicinal substance allergy status; Z90.49 Acquired absence of other specified parts of digestive tract; Z98.1 Arthrodesis status; E87.6 Hypokalemia; Z98.52 Vasectomy status; Z87.891 Personal history of nicotine dependence; Z79.811 Long term (current) use of aromatase inhibitors; Z79.84 Long term (current) use of oral hypoglycemic drugs; Z79.02 Long term (current) use of antithrombotics/antiplatelets
CPT/HCPCS: 36415; 36569; 71045; 71250; 74176; 80047; 80048; 80053; 80069; 80202; 81001; 82248; 82330; 82436; 82550; 82803; 82947; 83605; 83735; 83880; 84100; 84132; 84145; 84300; 84439; 84443; 84484; 85014; 85018; 85025; 85610; 85730; 86140; 86141; 87040; 87205; 87428-QW; 87507; 93005; 93010; 93246; 93306; 94640; 94664; 94760; 99285-25; A9270; C1751; J0360; J0696; J1650; J2919; J3370; J3475; J3480; J7030; J7040; J7050; J7060; P9045

== ENCOUNTER 2024-09-13 18:39 | Emergency (ER) | payer OTHER ==
[~2024-09-13] VITALS: Ht 157.5 cm; Wt 68.0 kg
[~2024-09-13 18:39] MED LIST changes: +BACTRIM DS TAB1 EAC6 PO; +CARV3.125 PO; +FLOMAX0.4 MG PO; +FURO20 PO; +POTA10T PO; +Prednisone10 MG PO
[2024-09-13 19:05] LABS: BASOPHILS ABSOLUTE AUTO 0.02 K/mm3 (0.00-0.23); BASOPHILS PERCENT AUTO 0 % (0-2); EOSINOPHILS ABSOLUTE AUTO 0.03 K/mm3 (0.00-0.68); EOSINOPHILS PERCENT AUTO 1 % (0-6); Hematocrit 25.6 % (37.0-53.0); IMMATURE GRAN ABSOLUTE AUTO 0.17 K/mm3 (0.00-0.10); IMMATURE GRAN PERCENT AUTO 3 % (0-1); LYMPHOCYTES ABSOLUTE AUTO 1.17 K/mm3 (0.84-5.20); LYMPHOCYTES PERCENT AUTO 21 % (21-46); MONOCYTES ABSOLUTE AUTO 0.78 K/mm3 (0.16-1.47); MONOCYTES PERCENT AUTO 14 % (4-13); Mean Corpuscular HGB 32.6 pg (26.0-34.0); Mean Corpuscular HGB Conc 35.2 g/dL (31.5-36.5); Mean Corpuscular Volume 93 fL (80-100); Mean Platelet Volume 9.2 fL (9.1-12.4); NEUTROPHILS ABSOLUTE AUTO 3.54 K/mm3 (1.96-9.15); NEUTROPHILS PERCENT AUTO 62 % (41-73); Platelet Count 277 K/mm3 (150-400); RDW Coefficient Variation 12.3 % (11.7-14.2); RDW Standard Deviation 41.8 fL (35.1-46.3); Red Blood Cell Count 2.76 M/mm3 (4.30-5.90); White Blood Cell Count 5.71 K/mm3 (4.00-11.30)
[2024-09-13 19:24] LABS: Albumin, Blood 2.5 g/dL (3.4-5.0); Albumin/Globulin Ratio 0.9 (0.8-1.8); Bilirubin, Total 0.4 mg/dL (0.1-1.0); Bun/Creatinine Ratio 33.1 (12.0-20.0); Calcium, Blood 7.6 mg/dL (8.5-10.1); Creatinine, Blood 1.3 mg/dL (0.60-1.20); Globulin, Blood 2.8 g/dL (2.2-4.0); Potassium, Blood 4.5 mmol/L (3.5-5.5); Total Protein, Blood 5.3 g/dL (6.4-8.2)
[2024-09-14 02:23] VITALS: BP 140/66
== END 2024-09-14 02:32 | disposition short-term general hospital (02) ==
LOC: ER 18:39
PROVIDERS: Student in an Organized Health Care Education/Training Program
DX: K92.2 Gastrointestinal hemorrhage, unspecified (principal); D64.9 Anemia, unspecified; R55 Syncope and collapse; K21.9 Gastro-esophageal reflux disease without esophagitis; E11.9 Type 2 diabetes mellitus without complications; E78.5 Hyperlipidemia, unspecified; Z79.02 Long term (current) use of antithrombotics/antiplatelets; Z79.899 Other long term (current) drug therapy; Z79.82 Long term (current) use of aspirin; Z79.1 Long term (current) use of non-steroidal anti-inflammatories (NSAID); Z79.84 Long term (current) use of oral hypoglycemic drugs; Z79.83 Long term (current) use of bisphosphonates; Z79.01 Long term (current) use of anticoagulants; Z88.8 Allergy status to other drugs, medicaments and biological substances; Z91.048 Other nonmedicinal substance allergy status; Z88.3 Allergy status to other anti-infective agents
CPT/HCPCS: 80053; 85025; 86850; 86900; 86901

== ENCOUNTER 2024-09-24 12:10 | Inpatient (IN) | payer OTHER ==
[~2024-09-24] VITALS: Ht 157.5 cm; Wt 64.8 kg
[~2024-09-24 12:10] MED LIST changes: -ISOMON20 PO; +Isosorbide Mono30 MG PO
[2024-09-24 13:13] LABS: BASOPHILS ABSOLUTE AUTO 0.01 K/mm3 (0.00-0.23); BASOPHILS PERCENT AUTO 0 % (0-2); EOSINOPHILS ABSOLUTE AUTO 0.02 K/mm3 (0.00-0.68); EOSINOPHILS PERCENT AUTO 0 % (0-6); Hematocrit 30.7 % (37.0-53.0); Hemoglobin 10.8 g/dL (13.5-17.5); IMMATURE GRAN ABSOLUTE AUTO 0.13 K/mm3 (0.00-0.10); IMMATURE GRAN PERCENT AUTO 2 % (0-1); LYMPHOCYTES ABSOLUTE AUTO 0.74 K/mm3 (0.84-5.20); LYMPHOCYTES PERCENT AUTO 10 % (21-46); MONOCYTES ABSOLUTE AUTO 0.18 K/mm3 (0.16-1.47); MONOCYTES PERCENT AUTO 2 % (4-13); Mean Corpuscular HGB 32.1 pg (26.0-34.0); Mean Corpuscular HGB Conc 35.2 g/dL (31.5-36.5); Mean Corpuscular Volume 91 fL (80-100); Mean Platelet Volume 9.9 fL (9.1-12.4); NEUTROPHILS ABSOLUTE AUTO 6.35 K/mm3 (1.96-9.15); NEUTROPHILS PERCENT AUTO 86 % (41-73); Platelet Count 187 K/mm3 (150-400); RDW Coefficient Variation 13.4 % (11.7-14.2); RDW Standard Deviation 44.1 fL (35.1-46.3); Red Blood Cell Count 3.36 M/mm3 (4.30-5.90); White Blood Cell Count 7.43 K/mm3 (4.00-11.30)
[2024-09-24 13:40] LABS: Albumin, Blood 3.1 g/dL (3.4-5.0); Bilirubin, Total 0.6 mg/dL (0.1-1.0); Bun/Creatinine Ratio 30.4 (12.0-20.0); Calcium, Blood 8.9 mg/dL (8.5-10.1); Creatinine, Blood 1.12 mg/dL (0.60-1.20); Globulin, Blood 3.1 g/dL (2.2-4.0); Potassium, Blood 4.6 mmol/L (3.5-5.5); Total Protein, Blood 6.2 g/dL (6.4-8.2)
[2024-09-24 14:13] LABS: Free Thyroxine 1.39 ng/dL (0.70-1.60); Thyroid Stimulating Hormone 0.402 uIU/mL (0.360-4.800)
[2024-09-24 14:14] LABS: Magnesium, Blood 1.9 mg/dL (1.6-2.4)
[2024-09-24] MEDS ORDERED: FLU VACC TS2024-25(6MOS UP)/PF 45 MCG/0.5 ML SYRINGE IM SCH (15:20)
[2024-09-24] MEDS ORDERED: Albuterol 2.5 MG/3 ML VIAL INH PRN (15:25)
[2024-09-24 16:00] VITALS: BP 152/69
[2024-09-24] MEDS ORDERED: Insulin Human Lispro 100 Units/ML 3ML Syringe SC SCH (16:30)
[2024-09-24] MEDS ORDERED: NOVOLOG FL100 UNIT/3 SC (16:37)
[2024-09-24] MEDS ORDERED: PRED20 PO (16:37)
[2024-09-24] MEDS ORDERED: POTCHL20ER PO (16:37)
[2024-09-24] MEDS ORDERED: TORSE20 PO (16:38)
[2024-09-24] MEDS ORDERED: HydrALAZINE HCl 20 MG / ML 1ML Vial IV ONE (16:50)
[2024-09-24 17:00] VITALS: BP 145/75
--- NOTE | 2024-09-24 17:00 | NUR ---
Drew of care: Received patient from ER. Neuro intact, ambulating independently. In NSR in the 80s with no ectopy or pauses noted. Blood pressure 170 systolic - discussed with Dr. Corley - orders for IV hydralazine 10mg x1. O2 sats stable on room air. Voiding & eating. PIV x1. & patient updated on plan of care. Will continue to monitor.
[2024-09-24 17:30] VITALS: BP 163/72
[2024-09-24 17:33] VITALS: BP 163/72
--- NOTE | 2024-09-24 17:38 | NUR ---
After wacthing the Pt. and his guests pray at bedside, this roller pneumatic introduced himself. Pt. is awake in bed when he welcomes my visit. Pts. spouse and Profiler Operator are alos present. Facilitated a life review andf in the process rapport is established. The Pt. displayed evidence of awareness and engageme. The Pt. verbalized gratitude for the spiritual care visit and welcomed this roller pneumatic to return in the morning.
[2024-09-24 18:00] VITALS: BP 140/50
[2024-09-24] MEDS ORDERED: Acetaminophen 500 MG Tab PO PRN (18:30)
[2024-09-24 19:00] VITALS: BP 127/54
--- NOTE | 2024-09-24 20:20 | NUR ---
ASSUMED CARE AT 1900 PATIENT IS ALERT AND ORIENTED X4. SP02 96% ON RA, DENIES SOB. HR SR 70s, BP STABLE. PATIENT DENIES CP/PRESSURE, NO DIZZINESS WHEN WALKING TO TOILET. PATIET HAD UNMEASURED VOID AND BM AT START OF SHIFT. ABLE TO REPOSITION SELF. CALL LIGHT IN REACH
[2024-09-24] MEDS ORDERED: Gabapentin 300 MG Cap PO SCH (21:00)
[2024-09-25] VITALS (8 sets, daily range): BP systolic 116–173; BP diastolic 60–72
--- NOTE | 2024-09-25 02:53 | NUR ---
REPORT TO ALLA WITT. PATIENT BEING TRANSFERED TO PCU 14
--- NOTE | 2024-09-25 04:35 | NUR ---
SHIFT SUMMARY. PT ARRIVED ON UNIT AT ABOUT ~0300. AOX4, PLEASANT, COOPERATIVE, ABLE TO MAKE NEEDS KNOWN. VITALS STABLE. RUNNING SINUS WITH RATE IN THE 60s-70s RANGE. NO PAUSES THUS FAR. MAINTAINING ADEQUATE SATURATION ON ROOM AIR. PT EDUCATED TICKET SORTER LIGHT USE. EDUCATED ON FALL RISK PRECAUTIONS. PT DENIES PAIN AND DENIES ANY NEEDS OUTSIDE OF SOME ICED WATER. RESTING COMFORTABLY AT THIS TIME. BED LOCKED IN LOWEST POSITION. CALL LIGHT LEFT WITHIN REACH. CONTINUING TO MONITOR.
[2024-09-25 05:07] LABS: Calcium, Blood 8.7 mg/dL (8.5-10.1); Creatinine, Blood 0.96 mg/dL (0.60-1.20); Potassium, Blood 3.7 mmol/L (3.5-5.5)
[2024-09-25 05:49] LABS: BASOPHILS ABSOLUTE AUTO 0.01 K/mm3 (0.00-0.23); BASOPHILS PERCENT AUTO 0 % (0-2); EOSINOPHILS ABSOLUTE AUTO 0.13 K/mm3 (0.00-0.68); EOSINOPHILS PERCENT AUTO 2 % (0-6); Hematocrit 30.4 % (37.0-53.0); Hemoglobin 10.7 g/dL (13.5-17.5); IMMATURE GRAN ABSOLUTE AUTO 0.09 K/mm3 (0.00-0.10); IMMATURE GRAN PERCENT AUTO 1 % (0-1); LYMPHOCYTES PERCENT AUTO 20 % (21-46); MONOCYTES ABSOLUTE AUTO 0.78 K/mm3 (0.16-1.47); MONOCYTES PERCENT AUTO 9 % (4-13); Mean Corpuscular HGB 32.2 pg (26.0-34.0); Mean Corpuscular HGB Conc 35.2 g/dL (31.5-36.5); Mean Corpuscular Volume 92 fL (80-100); NEUTROPHILS ABSOLUTE AUTO 5.88 K/mm3 (1.96-9.15); NEUTROPHILS PERCENT AUTO 69 % (41-73); Platelet Count 192 K/mm3 (150-400); RDW Coefficient Variation 13.7 % (11.7-14.2); RDW Standard Deviation 45.1 fL (35.1-46.3); Red Blood Cell Count 3.32 M/mm3 (4.30-5.90); White Blood Cell Count 8.59 K/mm3 (4.00-11.30)
[2024-09-25] MEDS ORDERED: Pantoprazole Sodium 20 MG Tab PO SCH (06:00)
--- NOTE | 2024-09-25 08:16 | NUR ---
AM NOTE ASSUMED CARE OF PATIENT AT 0700. PT ALERT, ORIENTED X4; CALM AND COOPERAIVE [facility] CARE. PT UP 1 PERSON ASSIST. PT REPORTING CHRONIC NECK PAIN AND HEADACHE, MEDICATED WITH TYLENOL. DENIES CHEST PAIN/PRESSURE, SOB, NAUSEA, DIZZINESS AND NUMB/TINGLING. TELE SINUS, BP ELEVATED. BLE TRACE EDEMA NOTED. SPO2 >90% ON RA, BREATHING EVEN AND UNLABORED, COARSE, NONPRODUCTIVE COUGH. ABD SOFT, NONTENDER, +BT. OTHER VSS. NO OTHER ACUTE CHANGES NOTED. WILL CONTINUE TO MONITOR.
[2024-09-25] MEDS ORDERED: Cholecalciferol 1000 Unit Tablet (=25MCG) PO SCH (09:00)
[2024-09-25] MEDS ORDERED: Heparin Sodium 5000 Units/ML 1ML MDV SC SCH (09:00)
[2024-09-25] MEDS ORDERED: Isosorbide Mononitrate 30 MG TABCR PO SCH (09:00)
[2024-09-25] MEDS ORDERED: GuaiFENesin 600 MG TabCR PO SCH (09:00)
[2024-09-25] MEDS ORDERED: Atorvastatin 40 MG Tab PO SCH (09:00)
[2024-09-25] MEDS ORDERED: AmLODIPine Besylate 5 MG Tab PO SCH (09:00)
[2024-09-25] MEDS ORDERED: Torsemide 20 MG TAB PO SCH (09:00)
[2024-09-25] MEDS ORDERED: Tamsulosin HCl 0.4 MG Cap PO SCH (09:00)
[2024-09-25] MEDS ORDERED: PredniSONE 20 MG Tab PO SCH (09:00)
--- NOTE | 2024-09-25 12:14 | NUR ---
Spiritual Care Check in. Pt. is awake in bed when he welccomes my visit. Pt. is pleasant and spouse is at bedside. Facilitated an update and the Pt. verbalized that he didn't get much rest last night. Listen with empathy and a calming presence. Prayed with the Pt. Pt. verbalized gratitude for the spiritual care visit and welcomed this radiologic technician to return.
--- NOTE | 2024-09-25 16:58 | NUR ---
Shift Summary No acute changes during shift. No events per tele. Other vss. Will continue to monitor. Possible bed at [facility], will await bed assignment.
--- NOTE | 2024-09-25 19:03 | NUR ---
Received bed assignment for [place], room 5401. Report given to Ricardo WITT, need to call when patient leaves. Patient informed spouse Carolyn by cell phone. Report given to mendy WITT
== END 2024-09-25 20:15 | disposition short-term general hospital (02) | DRG 309 ==
LOC: ER 12:10 → ICUE 15:17 → PCU 15:17 → ER 16:27 → ICUE 16:38 → PCU 09-25 02:56
PROVIDERS: Emergency Medicine; Student in an Organized Health Care Education/Training Program; ADMIT Internal Medicine
DX: I45.5 Other specified heart block (principal); I13.0 Hypertensive heart and chronic kidney disease with heart failure and stage 1 through stage 4 chronic kidney disease, or unspecified chronic kidney disease; I25.10 Atherosclerotic heart disease of native coronary artery without angina pectoris; Z96.653 Presence of artificial knee joint, bilateral; I48.0 Paroxysmal atrial fibrillation; D50.9 Iron deficiency anemia, unspecified; F32.9 Major depressive disorder, single episode, unspecified; E11.51 Type 2 diabetes mellitus with diabetic peripheral angiopathy without gangrene; E78.5 Hyperlipidemia, unspecified; M54.12 Radiculopathy, cervical region; I35.0 Nonrheumatic aortic (valve) stenosis; K21.9 Gastro-esophageal reflux disease without esophagitis; I49.5 Sick sinus syndrome; E11.22 Type 2 diabetes mellitus with diabetic chronic kidney disease; D63.1 Anemia in chronic kidney disease; K52.9 Noninfective gastroenteritis and colitis, unspecified; I50.9 Heart failure, unspecified; G25.81 Restless legs syndrome; N40.0 Benign prostatic hyperplasia without lower urinary tract symptoms; Z95.1 Presence of aortocoronary bypass graft; Z88.8 Allergy status to other drugs, medicaments and biological substances; Z91.048 Other nonmedicinal substance allergy status; Z90.49 Acquired absence of other specified parts of digestive tract; Z98.1 Arthrodesis status; Z98.890 Other specified postprocedural states; Z79.82 Long term (current) use of aspirin; Z79.899 Other long term (current) drug therapy; Z79.84 Long term (current) use of oral hypoglycemic drugs; Z98.52 Vasectomy status; Z87.891 Personal history of nicotine dependence
CPT/HCPCS: 36415; 71046; 80048; 80053; 82947; 83735; 84439; 84443; 84484; 85025; 93005; 93010; 94762; 99285-25; A9270; J0360; J1644; J2470; J7512

== ENCOUNTER → 2024-11-30 | Outpatient (CLI) | payer OTHER ==
[~2024-11-30] MED LIST changes: +NOVOLOG FL100 UNIT/3 SC; +POTCHL20ER PO; +PRED20 PO; +TORSE20 PO
[2024-11-30 18:37] LABS: Creatinine Urine 31.8 mg/dL (27.00-270.00); Protein, Urine Quantitative 9.7 mg/dL (0.0-11.9)
[2024-11-30 18:40] LABS: Microalbumin, Urine Quant. 24.3 mg/L (0.000-20.000)
== END ==
LOC: LAB 07:00 → LAB SHORT 07:00
PROVIDERS: Internal Medicine Nephrology
DX: N18.30 Chronic kidney disease, stage 3 unspecified (principal); D75.1 Secondary polycythemia; N25.81 Secondary hyperparathyroidism of renal origin; E78.00 Pure hypercholesterolemia, unspecified; R76.9 Abnormal immunological finding in serum, unspecified; R94.5 Abnormal results of liver function studies; R94.6 Abnormal results of thyroid function studies
CPT/HCPCS: 81050; 82043; 82570; 84156